=== PATIENT | female | born 1990 | race Caucasian/White ===

== ENCOUNTER 2024-01-22 15:29 | Emergency (ER) | payer OTHER, SELFPAY ==
--- NOTE | ~2024-01-22 | XR_ITS ---
EXAMINATION: XR HAND, RIGHT CLINICAL INFORMATION: pain, injury COMPARISON: None available. TECHNIQUE: PA, lateral, and oblique views of the right hand. FINDINGS: Examination demonstrates an oblique fracture involving the distal metadiaphysis of the right fifth metacarpal bone, with palmar angulation of the distal fragment relative to the proximal fragment. Associated soft tissue swelling. No other fracture identified. Joint spaces appear maintained. No erosions or soft tissue calcification identified. XR/XR hand RT min 3V IMPRESSION: Fracture of the right fifth metacarpal bone. Electronically signed by: Tera Trotter MD 01/22/2024 05:15 PM EST
[2024-01-22 15:49] VITALS: BP 155/89; PULSE 109; RESP 20; TEMP 37.1; O2SAT 97; BMI 30.5
--- NOTE | 2024-01-22 15:51 | ED.GENADULT ---
HPI - General Adult General Chief complaint: Extremity Problem Stated complaint: RT hand injury Time Seen by Provider: 01/22/24 17:21 Source: patient Mode of arrival: ambulatory Limitations: no limitations History of Present Illness ED Provider: Mario BROWN HPI narrative: 33-year-old female presents to ED for right hand pain. Patient states today she tripped and fell onto her right hand earlier today. Patient states 5th knuckle of right hand hurts. Patient denies hitting head, loss of consciousness, or any other complaints. Related Data Previous Rx's ?Medication ?Instructions ?Recorded oxycodone 5 mg capsule 5 mg PO TID PRN pain 3 days #9 caps 01/22/24 Allergies Allergy/AdvReac Type Severity Reaction Status Date / Time NSAIDS (Non-Steroidal AdvReac Facial Verified 01/22/24 15:52 Anti-Inflamma Swelling Review of Systems Review of Systems: Right hand pain Yes all other systems are reviewed and are negative Physical Exam ED Vital Signs: Vital Signs - 24 hr 01/22/24 15:49 01/22/24 16:33 01/22/24 19:18 Temperature 98.7 F 98.3 F 98.3 F Pulse Rate 109 H 92 92 Respiratory Rate 20 16 16 Blood Pressure 155/89 H 122/92 H 122/92 H Pulse Oximetry 97 100 100 Oxygen Delivery Method Room Air Room Air Room Air BMI result Body Mass Index 30.5 Const General: cooperative, healthy appearing, comfortable, no acute distress, well developed, alert, awake and Physically active Orientation/consciousness: patient oriented x3 HENMT Head: Yes normal to inspection, Yes No palpable skull fracture present, Yes normocephalic and Yes atraumatic Eyes General: appearance normal, both eyes and all related structures Neck Neck: Yes normal visual inspection, Yes full ROM, Yes no lymphadenopathy, Yes no meningeal signs, Yes trachea midline, Yes supple, No anterior neck swelling and No tender Chest Chest palpation & inspection: normal inspection of the chest and normal palpation of entire chest wall Resp Effort & Inspection: normal respiratory effort and able to speak in complete sentences Auscultation: clear to auscultation bilaterally Cardio Jugular venous distension: no JVD Heart sounds: S1 normal heart sound present and S2 normal heart sound present GI Inspection: Yes normal to inspection Palpation (GI): Soft to palpation, not firm, nontender, no guarding and not rigid General: Yes no CVA tenderness Back/Spine/Pelvis Back: no CVA tenderness and No back tenderness Skin General skin exam: no rashes or lesions noted, elasticity normal and turgor normal Neuro General: patient oriented x3, gait normal, tone normal, moves all extremities, Normal light touch and pain sensation, no meningeal signs, no focal motor deficits, CN's II-XI intact bilaterally and normal sensation to monofilament Extrem General: Yes normal to inspection, Yes full ROM and Yes capillary refill normal Hand/finger images: 1. Positive for tenderness on palpation. Positive for mild swelling and ecchymosis. Negative for erythema. Motor exam of right finger limited due to pain. Rest of extremity normal. Motor/neuro/vascular exam intact. Psych Appearance: grossly normal, well kempt and not disheveled Course Course Course Narrative: RME performed by Sita Bucio PA-C. Patient is a 33 year old assigned female at presenting to the emergency department with right hand pain after a fall. Detailed physical exam and review of systems are deferred to the room service attendant. Imaging ordered. Patient placed back in the waiting room pending room availability and results. Medications Administered Discontinued Medications Generic Name Dose Route Start Last Admin Trade Name Freq PRN Reason Stop Dose Admin Acetaminophen 975 mg 01/22/24 17:31 01/22/24 17:52 Acetaminophen 325 Mg Tablet PO 01/22/24 17:32 975 mg ONCE ONE Administration Oxycodone HCl 5 mg 01/22/24 18:24 01/22/24 19:15 Oxycodone Hcl Immed Release 5 Mg Tablet PO 01/22/24 18:25 5 mg ONCE ONE Administration Medical Decision Making Medical Decision Making MDM Narrative: 33-year-old female right hand pain. X-ray shows boxer's fracture. Will placed in ulnar gutter splint. 6:27pm: Ulnar gutter placed. Motor vascular neuro exam intact. Patient given oxycodone for pain. Patient explaiend worrisome signs and informed to return to the ED immediatley if she has them Differential Diagnosis Differential Diagnoses: The differential diagnosis associated with the presentation includes Admission/Observation Consideration of admission/observation: Escalation of care including admission/observation considered Independent Interpretation I performed an independent interpretation of an: Plain X-Ray Radiology Impression Discussion of test interpretation with radiology: I have reviewed the radiologist's reading. Independent Historian Clinical information obtained from an independent historian. History obtained from or confirmed by: Other (Patient) External Record Review External record reviewed: Other (Prior visits) Prescription Management I considered prescription management with: Pain Medication Discharge Plan Discharge Clinical Impression: Boxer's fracture Patient Disposition: Home, Self-Care Instructions: Splint Care (ED), Boxer Fracture (ED) Additional Instructions: You will need to follow up with Orthopedic surgery for right hand fracture. Return to the ED for severe pain, bluish black discoloration, numbness/tingling, chest pain, shortness of breath, fever, chills, redness, or any other concerning symptoms. FINDINGS: Examination demonstrates an oblique fracture involving the distal metadiaphysis of the right fifth metacarpal bone, with palmar angulation of the distal fragment relative to the proximal fragment. Associated soft tissue swelling. No other fracture identified. Joint spaces appear maintained. No erosions or soft tissue calcification identified. XR/XR hand RT min 3V IMPRESSION: Fracture of the right fifth metacarpal bone. Electronically signed by: Tera Trotter MD 01/22/2024 05:15 PM [facility] Prescriptions: New oxycodone 5 mg capsule 5 mg PO TID PRN (Reason: pain) 3 Days Qty: 9 0RF Rx Instructions: Partial Fill upon patient request. Referrals: [facility] [place] Orthopedic Surgeons [Provider Group] (Right hand boxer's fracture) Interventions: ED Discharge Assessment Last Done: 01/22/24 19:18 Discharge Date/Time: 01/22/24 19:19 Print Language: Macedonian
[2024-01-22 16:33] VITALS: BP 122/92; PULSE 92; RESP 16; TEMP 36.8; O2SAT 100
[2024-01-22] MEDS: Acetaminophen 325 MG TABLET 975 MG PO (17:52)
[2024-01-22] MEDS: oxyCODONE HCl Immed Release 5 MG TABLET PO (19:15)
[2024-01-22 19:18] VITALS: BP 122/92; PULSE 92; RESP 16; TEMP 36.8; O2SAT 100
== END 2024-01-22 19:19 | disposition home or self-care (01) ==
PROVIDERS: Emergency Provider Internal Medicine; PCP Internal Medicine
DX: S62.91XA Unspecified fracture of right hand, initial encounter for closed fracture (principal); M79.641 Pain in right hand; W01.0XXA Fall on same level from slipping, tripping and stumbling without subsequent striking against object, initial encounter; Y93.89 Activity, other specified; Y92.89 Other specified places as the place of occurrence of the external cause; Y99.8 Other external cause status
CPT/HCPCS: 29125; 73130; 99283; 99284

== ENCOUNTER 2024-01-25 09:03 | Outpatient (REF) | payer OTHER, SELFPAY | END 2024-01-25 09:04 | disposition home or self-care (01) | LOC: HO.HOSX 09:03 | PROVIDERS: Visit Provider Orthopaedic Surgery | DX: M79.641 Pain in right hand (principal); S62.306A Unspecified fracture of fifth metacarpal bone, right hand, initial encounter for closed fracture | CPT/HCPCS: 73130; 99202 ==

== ENCOUNTER 2024-01-25 14:02 | Outpatient (AMB) | payer OTHER, SELFPAY ==
--- NOTE | 2024-01-25 14:33 | MHC.OFFVIS ---
Intake Visit Reasons: [employer]- ED f/u- Boxer's fracture RT hand Intake Note: Camila is a 33 year old right hand dominant female who presents to the office today for an E/D follow up boxer's fracture RT hand. Pt states on 01/22/24 she was walking her dog and fell into the stair and hit her hand into the stair with her knee. Pt states she went to the ED and was put in a splint and was given oxycodone. Pt states she has severe pain in her hand and her wrist. Pt states she broke that same wrist and arm in 2016. Allergies NSAIDS (Non-Steroidal Anti-Inflamma Adverse Reaction (Verified 01/25/24 14:33) Facial Swelling HPI HPI [employer]- ED f/u- Boxer's fracture RT hand: Details: Camila is a 33 year old right hand dominant woman who presents for a right 5th metacarpal fracture, S/P fall, DOI: 01/22/24. She was seen in the ED and placed in a splint. She complains of severe pain in her hand & wrist. She says she broke her right wrist in 2016. She has several children at home, including a 5 month old and a 20 month old. She says she could not tolerate being placed in a splint and would prefer a cast. Review of Systems Const All systems reviewed & are unremarkable except as noted in HPI and below Physical Exam Const General: cooperative, healthy appearing and no acute distress Orientation/consciousness: patient oriented x3 HEENT Head: Yes normocephalic and Yes atraumatic Eyes EOM: EOMs intact bilaterally Resp Effort & Inspection: normal respiratory effort and able to speak in complete sentences Cardio Jugular venous distension: no JVD Skin General skin exam: turgor normal Rashes: no rashes Neuro General: patient oriented x3 Extrem Other: Evaluation of Right Upper Extremity: The patient is alert, oriented, and in no acute distress Neuro: Median, Ulnar, Radial nerves motor and sensory intact and sensation is normal to the tips of all digits Vascular: Cap refill brisk ROM: She can make a fist and extend all her digits Skin: No lacerations or abrasions. General: No Ecchymosis. No Erythema or evidence of infection. Most tender over the 5th metacarpal Hypersensitivity over the Radiographs: 3 views of the right hand were taken and viewed by me today in clinic. They show a 5th metacarpal neck fracture, oblique, minimally displaced with ~28 degrees apex dorsal ulnar angulation Psych Appearance: grossly normal Affect: normal affect Attitude: cooperative Office Procedures AMB Fracture Care Details: Fracture care 33310 Fracture Billing Code: Fracture Billing Code Assessment & Plan Assessment & Plan (1) Fracture of fifth metacarpal bone of right hand: Code(s): S62.306A - Unspecified fracture of fifth metacarpal bone, right hand, initial encounter for closed fracture Category: Medical Plan Assessment & Plan: 1. Right oblique 5th metacarpal neck fracture, S/P fall DOI: 01/22/24 I educated her about this condition I discussed operative and non-operative treatment options I believe we can manage this non-operatively She was fitted for a short arm finger spica cast to be worn for the next 2 weeks. She has a several children at home, including a 5 month old & a 20 month old and is concerned that she could not handle wearing just a splint. I discussed activity modification, she is to lift nothing heavier than a cellphone for the next 4 weeks She will follow up in 3-4 weeks, with X-rays, 3V R hand, OOP Scribed for Unique Hall MD by Julio Fleming, associate medical director, on 01/25/24 at 3:05 PM, EST. Orders: Orders XR hand RT min 3V Today M79.641 - Pain in right hand Coding Level of Care Code New Pt Level 4 (65688) Diagnoses Fracture of fifth metacarpal bone of right hand S62.306A CPT Codes Fracture Care - Fracture Billing Code: Fracture Billing Code ([id number])
== END 2024-01-25 16:08 | disposition home or self-care (01) ==
PROVIDERS: PCP Internal Medicine; Visit Provider Orthopaedic Surgery
DX: S62.306A Unspecified fracture of fifth metacarpal bone, right hand, initial encounter for closed fracture (principal)
CPT/HCPCS: 26600; 99204

== ENCOUNTER 2024-02-07 11:58 | Outpatient (AMB) | payer OTHER, SELFPAY ==
[2024-02-07 12:45] VITALS: BMI 30.5
--- NOTE | 2024-02-07 12:45 | MHC.OFFVIS ---
Vital Signs 02/07/24 12:45 Height 4 ft 9 in Weight 141 lb BMI 30.5 Intake Visit Reasons: OV-RT 5th MCP Fx follow up w/x-rays OOP. Intake Note: Camila 33 yr old female presents today for a cast change. States the cast is loose due to improve swelling and padding has matted down. Allergies NSAIDS (Non-Steroidal Anti-Inflamma Adverse Reaction (Verified 01/25/24 14:33) Facial Swelling HPI HPI OV-RT 5th MCP Fx follow up w/x-rays OOP.: Details: I saw the patient in the waiting room with her . I was heading out for a moment and asked how she was doing and what was bringing her in 2 weeks early. She demonstrated to me that her swelling had gone down and now she had more room in her cast and felt that it was loose. She denied having any pain. I talked to her about the fact that we could remove the cast and treat this with kayla taping and splinting, but she reminded me that she has 7 children at home and that she was very concerned about it getting re-injured. With this I mention that the current cast was certainly protecting the hand and performing this function. I thought that she could stand the same cast for another 2 weeks if she wanted to just to keep her hand for being struck by 1 of the children. Either way I was happy to see her. Physical Exam Vital Signs: BMI result Body Mass Index 30.5 Extrem Other: Unfortunately the only exam I had the chance to perform was in the waiting room, as the patient had left without being seen by me in the exam room. In the waiting room she was alert oriented and in no acute distress. Her finger spica cast was clean dry and intact. She did demonstrate that she can now pass her finger over the dorsal aspect of her hand within the cast. She did not appear to be in any pain, and was moving her fingers easily where they were not within the cast. Assessment & Plan Assessment & Plan (1) Fracture of fifth metacarpal bone of right hand: Code(s): S62.306A - Unspecified fracture of fifth metacarpal bone, right hand, initial encounter for closed fracture Category: Medical Plan Assessment & Plan: 1. Right oblique 5th metacarpal neck fracture, S/P fall DOI: 01/22/24 She had been scheduled to be seen 2 weeks from now. Again she came in today because she felt her cast was loose. Please see my comments in the HPI. Unfortunately, the patient had our MAs cut her cast off and then left the clinic without being seen The 2 options presented to her were either to cut the cast off today and then place her in a Velcro wrist splint and kayla taping or to continue with the cast that she was in to protect her hand from further injury by 1 of her 7 children at home. In the waiting area she expressed that she was not comfortable with splinting and kayla taping because of her busy home life with her children. I told her we were happy to take a look at her and proceed with either plan. In any case she had the cast cut off and left without being seen by me again after the cast was cut off. She may follow up p.r.n.. Coding Level of Care Code Global (87932) Diagnoses Fracture of fifth metacarpal bone of right hand S62.306A
== END 2024-02-07 12:17 | disposition left against medical advice (07) ==
LOC: HO.HOS 11:58
PROVIDERS: PCP Internal Medicine; Visit Provider Orthopaedic Surgery
DX: S62.306A Unspecified fracture of fifth metacarpal bone, right hand, initial encounter for closed fracture (principal)
CPT/HCPCS: 99024

== ENCOUNTER → 2024-02-07 11:58 | Outpatient (BNVA) | payer OTHER, SELFPAY | PROVIDERS: PCP Internal Medicine; Visit Provider Orthopaedic Surgery | DX: Z47.89 Encounter for other orthopedic aftercare (principal); S62.306A Unspecified fracture of fifth metacarpal bone, right hand, initial encounter for closed fracture; W18.30XA Fall on same level, unspecified, initial encounter; Y93.9 Activity, unspecified; Y92.9 Unspecified place or not applicable; Y99.9 Unspecified external cause status; Z46.89 Encounter for fitting and adjustment of other specified devices; Z53.21 Procedure and treatment not carried out due to patient leaving prior to being seen by health care provider | CPT/HCPCS: 99212 ==

== ENCOUNTER 2024-02-10 12:30 | Outpatient (AMB) | payer OTHER, SELFPAY ==
--- NOTE | 2024-02-10 12:33 | MHC.OFFVIS ---
Intake Visit Reasons: O/V RT MCP fx 01/22/24/needs re-casted Intake Note: Camila is a 33 year old right hand dominant female who presents today for a cast application on the right hand. She sustained a Right 5th MC fx on 01/22/24. She reports that she came into the office on Tuesday for a cast change as the cast was feeling to loose and uncomfortable. While in the office she was approached by AR in the waiting room and told that she does not need the cast as it is no longer needed to support the fracture as much as it is for protection from bumping or overusing so she may either keep her cast on or remove it and be placed in a velcro wrist brace with kayla tape. Due to frustration patient requested to have the cast removed and to seek a second opinion. We contacted the patient to return to the office to be placed on a finger spica cast. Allergies NSAIDS (Non-Steroidal Anti-Inflamma Adverse Reaction (Verified 01/25/24 14:33) Facial Swelling HPI HPI O/V RT MCP fx 01/22/24/needs re-casted: Details: Camila is a 33 year old right hand dominant female who presents today for a cast application on the right hand. She sustained a Right 5th MC fx on 01/22/24. She reports that she came into the office on Tuesday for a cast change as the cast was feeling to loose and uncomfortable. While in the office she was approached by AR in the waiting room and told that she does not need the cast as it is no longer needed to support the fracture as much as it is for protection from bumping or overusing so she may either keep her cast on or remove it and be placed in a velcro wrist brace with kayla tape. Due to frustration patient requested to have the cast removed and to seek a second opinion. We contacted the patient to return to the office to be placed on a finger spica cast. Review of Systems Const All systems reviewed & are unremarkable except as noted in HPI and below Physical Exam Const General: cooperative, healthy appearing and no acute distress Orientation/consciousness: patient oriented x3 HEENT Head: Yes normocephalic and Yes atraumatic Eyes EOM: EOMs intact bilaterally Resp Effort & Inspection: normal respiratory effort and able to speak in complete sentences Cardio Jugular venous distension: no JVD Skin General skin exam: turgor normal Rashes: no rashes Neuro General: patient oriented x3 Extrem Other: Evaluation of Right Upper Extremity: The patient is alert, oriented, and in no acute distress Neuro: Median, Ulnar, Radial nerves motor and sensory intact and sensation is normal to the tips of all digits Vascular: Cap refill brisk ROM: She can make a fist and extend all her digits Skin: No lacerations or abrasions. General: No Ecchymosis. No Erythema or evidence of infection. tender over the 5th metacarpal Radiographs: 3 views of the right hand were taken and viewed by me today in clinic. They show a 5th metacarpal neck fracture, oblique, minimally displaced with ~28 degrees apex dorsal ulnar angulation Psych Appearance: grossly normal Affect: normal affect Attitude: cooperative Office Procedures Casting/Splints 18442-Xpiv/Wrist Cast Application Procedure code (CPT) selection complete Assessment & Plan Assessment & Plan (1) Fracture of fifth metacarpal bone of right hand: Code(s): S62.306A - Unspecified fracture of fifth metacarpal bone, right hand, initial encounter for closed fracture Category: Medical Plan Assessment & Plan: 1. Right oblique 5th metacarpal neck fracture, S/P fall DOI: 01/22/24 I educated her about this condition I discussed operative and non-operative treatment options I believe we can manage this non-operatively She was fitted for a short arm finger spica cast to be worn for the next 2 weeks. She has a several children at home, including a 5 month old & a 20 month old and is concerned that she could not handle wearing just a splint. I discussed activity modification, she is to lift nothing heavier than a cellphone for the next 4 weeks She will follow up in 2 weeks, with X-rays, 3V R hand, OOP Scribed for Unique Hall MD by Julio lFeming biomedical technician, on 01/25/24 at 3:05 PM, EST. Coding Level of Care Code Global (32957) Diagnoses Fracture of fifth metacarpal bone of right hand S62.306A CPT Codes Casting - CPT: 63969-Ygnp/Wrist Cast Application ([id number])
== END 2024-02-10 13:02 | disposition home or self-care (01) ==
LOC: HO.HOS 12:30
PROVIDERS: PCP Internal Medicine
DX: S62.306A Unspecified fracture of fifth metacarpal bone, right hand, initial encounter for closed fracture (principal)
CPT/HCPCS: 29085; 99024

== ENCOUNTER → 2024-02-10 12:30 | Outpatient (BNVA) | payer OTHER, SELFPAY | PROVIDERS: PCP Internal Medicine | DX: S62.306D Unspecified fracture of fifth metacarpal bone, right hand, subsequent encounter for fracture with routine healing (principal); X58.XXXD Exposure to other specified factors, subsequent encounter | CPT/HCPCS: 29085; 99212 ==

== ENCOUNTER 2024-02-21 08:25 | Outpatient (REF) | payer OTHER, SELFPAY | END 2024-02-21 08:26 | disposition home or self-care (01) | LOC: HO.HOSX 08:25 | DX: Z13.89 Encounter for screening for other disorder (principal) ==